=== PATIENT | male | born 1985 | race Asian ===

== ENCOUNTER 2018-08-16 02:21 | Emergency (ER) | payer BC ==
[~2018-08-16] VITALS: Ht 213.4 cm; Wt 84.1 kg
[2018-08-16] MEDS ORDERED: KEPPRA XR500 MG PO (02:31)
[2018-08-16 04:35] VITALS: BP 120/85; TEMP 98.1
== END 2018-08-16 04:39 | disposition home or self-care (01) ==
LOC: ED 02:21
DX: K52.9 Noninfective gastroenteritis and colitis, unspecified (principal); R51 Headache
CPT/HCPCS: 96372; 99283; J1885; J2405

== ENCOUNTER 2020-01-11 15:52 | Emergency (ER) | payer BC ==
[~2020-01-11] VITALS: Ht 213.4 cm; Wt 83.9 kg
[~2020-01-11 15:52] MED LIST: KEPPRA XR500 MG PO
[2020-01-11 16:13] VITALS: TEMP 99.4
[2020-01-11 17:11] VITALS: BP 142/74
== END 2020-01-11 17:12 | disposition home or self-care (01) ==
LOC: ED 15:52
DX: L25.9 Unspecified contact dermatitis, unspecified cause (principal)
CPT/HCPCS: 96372; 99283; J2930

== ENCOUNTER 2022-04-26 22:14 | Emergency (ER) | payer BC ==
[~2022-04-26] VITALS: Ht 170.2 cm; Wt 95.3 kg
[2022-04-26 22:20] VITALS: BP 113/65
== END 2022-04-26 23:15 | disposition home or self-care (01) ==
LOC: ED 22:14
DX: Z20.822 Contact with and (suspected) exposure to COVID-19 (principal); J40 Bronchitis, not specified as acute or chronic; J02.9 Acute pharyngitis, unspecified
CPT/HCPCS: 87502; 87635; 87651; 99283; U0001